=== PATIENT | female | born 2000 | race American Indian/Alaskan Native ===

== ENCOUNTER 2022-06-04 05:30 | Inpatient (IN) | payer OTHER ==
[2022-06-04] MEDS ORDERED: Bupivacaine HCl 0.5%/Epinephrine 1:200,000/PF 30 ml Vial ONE (12:22)
[2022-06-04] MEDS ORDERED: Ondansetron PF 4 MG/2 ML Vial IVP PRN (20:38)
[2022-06-04] MEDS ORDERED: Promethazine HCl 25 MG/ML VIAL IM PRN (20:38)
[2022-06-04] MEDS ORDERED: Ibuprofen 800 MG TAB PO PRN (20:38)
[2022-06-04] MEDS ORDERED: Lidocaine 1% (PF) 30 ML VIAL SC PRN (20:38)
[2022-06-04] MEDS ORDERED: Misoprostol 100 MCG TAB VAG SCH (20:38)
[2022-06-04] MEDS ORDERED: Penicillin G Potassium 5 MILL.UNITS in Sodium Chloride 0.9% 100 ML IVPB SCH (20:38)
[2022-06-04] MEDS ORDERED: HYDROcodone/Acetaminophen 5/325 mg Tablet PO PRN ×2 (20:38)
[2022-06-04] MEDS ORDERED: hydrALAZINE 20 MG/ML VIAL SLOW IVP PRN (20:38)
[2022-06-04] MEDS ORDERED: Butorphanol Tartrate 1 MG/ML VIAL SLOW IVP PRN (20:38)
[2022-06-04 20:55] LABS: Hemoglobin 12.3 g/dL (12.0-15.5); Mean Corpuscular HGB CONC 34.2 g/dL (32.0-36.0); Mean Corpuscular Hemoglobin 28.6 pg (27.0-33.0); Mean Corpuscular Volume 83.7 fl (81.6-98.3); Mean Platelet Volume 10.7 fl (7.4-10.4); Platelet Count 235 10x3/uL (150-450); RBC Distribution Width 13.9 % (11.5-14.5); White Blood Cell (WBC) Count 10.1 10x3/uL (3.5-10.5)
[2022-06-04] MEDS ORDERED: NS w/ Oxytocin 30 units 500 ML IV SCH (21:00)
[2022-06-04 21:26] LABS: HBSAg Index 0.16 S/CO (0-0.99); Hep B Surf Ag Non-Reactive S/CO (NonReactive)
[2022-06-04 21:28] LABS: Syphilis Antibody Nonreactive (Nonreactive); Syphilis Antibody Index 0.06 S/CO (<1.00 Non-Reactive)
[2022-06-04 23:47] VITALS: BMI 33.9
[2022-06-05] MEDS: Penicillin G 2.5 MILL.units 2.5 MILL.UNITS in Premix Bag 1 BAG IVPB SCH ×6 (02:13→21:40)
[2022-06-05] MEDS: Misoprostol 100 MCG TAB VAG SCH ×3 (04:50→21:39)
[2022-06-05] MEDS ORDERED: Promethazine HCl 25 MG/ML VIAL IM PRN (11:11)
[2022-06-05] MEDS ORDERED: ePHEDrine Sulfate 50 MG/10 ML VIAL SLOW IVP PRN (11:11)
[2022-06-05] MEDS ORDERED: Lactated Ringer's 500 ML IV PRN (11:11)
[2022-06-05] MEDS ORDERED: Ondansetron PF 4 MG/2 ML Vial IVP PRN (11:11)
[2022-06-05] MEDS ORDERED: Naloxone HCl 0.4 mg/ml Vial IVP PRN ×2 (11:11)
[2022-06-05] MEDS ORDERED: Acetaminophen 325 MG TAB PO PRN (11:11)
[2022-06-05] MEDS ORDERED: Fentanyl 2 mcg/Bup 0.1% Cadd 100 ML ONE (11:11)
[2022-06-05] MEDS ORDERED: Moisturizing Cream (Eucerin) 113 GM JAR TOP PRN (11:11)
[2022-06-05] MEDS ORDERED: diphenhydrAMINE 50 MG/ML VIAL IVP PRN (11:11)
[2022-06-05] MEDS ORDERED: Fentanyl 2 mcg/Bupivacaine 0.1% Cassette 100 ML EPIDURAL SCH (11:15)
[2022-06-05] MEDS ORDERED: Communication Order-Pharmacy FS SCH (11:15)
[2022-06-05] MEDS ORDERED: NS w/ Oxytocin 30 units 500 ML IV SCH (13:45)
[2022-06-05] MEDS: Lactated Ringer's 1,000 ML IV SCH ×2 (21:38→21:39)
[2022-06-06] MEDS ORDERED: Methylergonovine 0.2 MG/ML VIAL ONE (02:30)
[2022-06-06] MEDS ORDERED: Misoprostol 200 MCG TAB ONE (02:30)
[2022-06-06] MEDS ORDERED: Lidocaine 1% (PF) 30 ML VIAL ONE (02:40)
[2022-06-06] MEDS: Misoprostol 100 MCG TAB VAG SCH ×2 (03:54→04:01)
[2022-06-06] MEDS: Penicillin G 2.5 MILL.units 2.5 MILL.UNITS in Premix Bag 1 BAG IVPB SCH (04:01)
[2022-06-06 04:49] LABS: SARS-CoV-2 NAA Rapid Test Not Detected (NotDetected)
[2022-06-06] MEDS ORDERED: Boostrix 0.5 ML (Tdap) VIAL (>/=7 yrs of age) IM ONE (04:49)
[2022-06-06] MEDS ORDERED: Lanolin Ointment 7 GM TUBE TOP PRN (04:49)
[2022-06-06] MEDS ORDERED: HYDROcodone/Acetaminophen 5/325 mg Tablet PO PRN ×2 (04:49)
[2022-06-06] MEDS ORDERED: NS w/ Oxytocin 30 units 500 ML IV SCH (04:49)
[2022-06-06] MEDS ORDERED: hydrALAZINE 20 MG/ML VIAL SLOW IVP PRN (04:49)
[2022-06-06] MEDS ORDERED: Milk Of Magnesia 30 ML UDCUP PO PRN (04:49)
[2022-06-06] MEDS ORDERED: Bisacodyl 10 MG SUPP PR PRN (04:49)
[2022-06-06] MEDS ORDERED: diphenhydrAMINE 25 MG CAP PO PRN (04:49)
[2022-06-06] MEDS ORDERED: Ondansetron PF 4 MG/2 ML Vial IVP PRN (04:49)
[2022-06-06] MEDS ORDERED: Benzocaine-Menthol 82.5 ML CAN TOP PRN (04:49)
[2022-06-06] MEDS ORDERED: Preparation H Ointment 28 GM TUBE PR PRN (04:49)
[2022-06-06] MEDS: Ibuprofen 800 MG TAB PO SCH ×3 (04:56→21:06)
[2022-06-06 06:29] LABS: Hemoglobin 11.3 g/dL (12.0-15.5)
[2022-06-06] MEDS: Ferrous Sulfate 325 MG TAB PO SCH ×2 (09:13→16:12)
[2022-06-06] MEDS: Prenatal Vitamin 1 TAB PO SCH (09:35)
[2022-06-06] MEDS: Docusate 100 MG CAP PO SCH ×2 (09:35→21:06)
[2022-06-07] MEDS: Ibuprofen 800 MG TAB PO SCH ×2 (05:21→13:10)
[2022-06-07] MEDS: Docusate 100 MG CAP PO SCH (07:37)
[2022-06-07] MEDS: Ferrous Sulfate 325 MG TAB PO SCH ×2 (07:38→18:39)
[2022-06-07] MEDS: Prenatal Vitamin 1 TAB PO SCH (07:38)
[2022-06-07 08:01] VITALS: BP 110/52; TEMP 97.5
== END 2022-06-07 17:45 | disposition home or self-care (01) | DRG 806 ==
LOC: CSHLD 19:57 → CSHPP 06-06 06:10
PROVIDERS: ADMIT Obstetrics & Gynecology; ATTEND Obstetrics & Gynecology
PROC: 10907ZC Drainage of Amniotic Fluid, Therapeutic from Products of Conception, Via Natural or Artificial Opening (ICD-10-PCS; 2022-06-05)
PROC: 10H07YZ Insertion of Other Device into Products of Conception, Via Natural or Artificial Opening (ICD-10-PCS; 2022-06-05)
PROC: 3E0P7VZ Introduction of Hormone into Female Reproductive, Via Natural or Artificial Opening (ICD-10-PCS; 2022-06-05)
PROC: 3E033VJ Introduction of Other Hormone into Peripheral Vein, Percutaneous Approach (ICD-10-PCS; 2022-06-05)
PROC: 10E0XZZ Delivery of Products of Conception, External Approach (ICD-10-PCS; principal; 2022-06-06)
PROC: 0KQM0ZZ Repair Perineum Muscle, Open Approach (ICD-10-PCS; 2022-06-06)
DX: O48.0 Post-term pregnancy (principal); O72.1 Other immediate postpartum hemorrhage; Z37.0 Single live birth; Z3A.41 41 weeks gestation of pregnancy; Z20.822 Contact with and (suspected) exposure to COVID-19; O70.1 Second degree perineal laceration during delivery
CPT/HCPCS: 36415; 51702; 85014; 85018; 85027; 86780; 86850; 86900; 86901; 87340; J0595; J2001; J2210; J2540; J2590; J3490; U0002